=== PATIENT | male | born 1995 | race African-American/Black ===

== ENCOUNTER 2019-05-08 03:37 | Emergency (ER) | payer SELFPAY ==
[~2019-05-08] VITALS: Ht 175.3 cm; Wt 88.3 kg
[2019-05-08 03:46] VITALS: BP 140/92
== END 2019-05-08 04:52 | disposition left against medical advice (07) ==
LOC: ER 03:37
DX: H92.02 Otalgia, left ear (principal); Z53.21 Procedure and treatment not carried out due to patient leaving prior to being seen by health care provider